=== PATIENT | female | born 1955 | race Caucasian/White ===

== ENCOUNTER 2021-11-02 07:17 | Day surgery (SDC) | payer BC, MEDICARE ==
[2021-10-31 09:47] VITALS: BMI 27.4
[~2021-11-02 07:17] MED LIST: LACTATED RINGERS 1,000 ML IV SCH; LIDOCAINE 1% (10MG/ML) FOR IV START INTRADERMA PRN
[2021-11-02 07:45] VITALS: TEMP 97.2
[2021-11-02] MEDS ORDERED: PROPOFOL 10 MG/ML 20 ML VIAL IV ONE (08:16)
[2021-11-02] MEDS ORDERED: GLUCAGON 1 MG/ML VIAL ONE (08:16)
--- NOTE | 2021-11-02 08:20 | P.GSHP ---
History of Present Illness H&P Date: 11/02/21 Chief Complaint: Screening colonoscopy This is a 65-year-old female who presents today for screening colonoscopy. Patient denies a significant GI complaints. Past Medical History Past Medical History: Osteoarthritis (OA), Thyroid Disorder Additional Past Medical History / Comment(s): Hx. of shingles History of Any Multi-Drug Resistant Organisms: None Reported Past Surgical History: Section Additional Past Surgical History / Comment(s): L wrist surgery, colonoscopy Past Anesthesia/Blood Transfusion Reactions: No Reported Reaction Smoking Status: Never smoker - Past Family History Mother Family Medical History: No Reported History Father Family Medical History: Deep Vein Thrombosis (DVT) Medications and Allergies Home Medications Medication Instructions Recorded Confirmed Type Acetaminophen [Tylenol] 325 mg PO DAILY 10/31/21 11/02/21 History Calcium Carbonate [Calcium] 600 mg PO DAILY 10/31/21 11/02/21 History Cholecalciferol (Vitamin D3) 125 mcg PO DAILY 10/31/21 11/02/21 History [Vitamin D3 (125 MCG = 5,000 IU)] Ibuprofen [Motrin] 400 mg PO Q8HR PRN 10/31/21 11/02/21 History Levothyroxine Sodium 100 mcg PO DAILY 10/31/21 11/02/21 History Multivitamins, Thera [Multivitamin 1 tab PO DAILY 10/31/21 11/02/21 History (formulary)] valACYclovir [Valtrex] 500 mg PO DAILY PRN 10/31/21 11/02/21 History Allergies Allergy/AdvReac Type Severity Reaction Status Date / Time tetracycline Allergy Rash/Hives Verified 11/02/21 07:35 [From Achromycin] Surgical - Exam Vital Signs Temp Pulse Resp BP Pulse Ox 97.2 F L 71 12 130/77 98 11/02/21 07:37 11/02/21 07:37 11/02/21 07:37 11/02/21 07:37 11/02/21 07:37 - General well developed, well nourished, no distress - Eyes PERRL - ENT normal pinna - Neck no masses - Respiratory normal expansion - Cardiovascular Rhythm: regular - Abdomen Abdomen: soft, non tender Assessment and Plan Assessment: We'll perform screening colonoscopy.
--- NOTE | 2021-11-02 08:41 | P.OP ---
Date of Procedure: 11/02/21 Preoperative Diagnosis: Screening colonoscopy Postoperative Diagnosis: Diverticulosis Sigmoid colon polyp Procedure(s) Performed: Colonoscopy Anesthesia: MAC Surgeon: Hector Coburn Pathology: other (Sigmoid colon polyp) Condition: stable Disposition: PACU Description of Procedure: The patient's placed on the endoscopy table in the lateral position. She received IV sedation. Digital rectal exam was performed. This revealed no abnormalities. The flexible colonoscope was then placed patient anus passed throughout the colon. The scope could not be passed beyond left colon secondary to tortuosity the sigmoid colon. Several times made to maneuver the scope however this wasn't possible. The scope was withdrawn. In the sigmoid colon there was a polyp seen. This removed with the snare. Scope was then withdrawn and the diverticular changes and sigmoid colon were seen. The scope was withdra wn the rectum and this appeared normal. The scope withdrawn for patient. Patient was scheduled for a barium enema to evaluate the remaining colon.
[2021-11-02 08:42] VITALS: RESP 16
[2021-11-02 09:15] VITALS: BP 129/78; PULSE 68
== END 2021-11-02 09:41 | disposition home or self-care (01) ==
LOC: ORWHC2ENDO 07:17
PROVIDERS: ATTEND Surgery
DX: Z12.11 Encounter for screening for malignant neoplasm of colon (principal); K63.5 Polyp of colon; K57.30 Diverticulosis of large intestine without perforation or abscess without bleeding; Q43.8 Other specified congenital malformations of intestine; M19.90 Unspecified osteoarthritis, unspecified site; E07.9 Disorder of thyroid, unspecified; Z86.19 Personal history of other infectious and parasitic diseases; Z82.49 Family history of ischemic heart disease and other diseases of the circulatory system; Z79.890 Hormone replacement therapy; Z79.899 Other long term (current) drug therapy; Z88.1 Allergy status to other antibiotic agents
CPT/HCPCS: 88305; 45338; J1610; J2704; 45380; 45385

== ENCOUNTER → 2021-11-14 | Outpatient (CLI) | payer MEDICARE ==
--- NOTE | 2021-11-14 13:03 | FL ---
EXAMINATION TYPE: FL barium enema DATE OF EXAM: 11/14/2021 COMPARISON: None available HISTORY: Incomplete colonoscopy TECHNIQUE: A double contrast barium enema study is performed. A total of 2 minutes and 4 seconds of fluoroscopic time was utilized during procedure and 28 images obtained. FINDINGS: Ship Unloader view of the abdomen shows overall non-obstructive bowel gas pattern. Redundant elongated colon. No evidence of any mass or large polyp, obstructing or constricting lesion throughout the colon. Scattered colonic diverticulosis most evident involving the sigmoid colon. Relatively reduced caliber of the sigmoid colon and descending colon, probably related to chronic div erticulosis. Appendix was filled and appeared normal. IMPRESSION: Colonic diverticulosis. No obvious colonic mass, large polyp or stricture. Please note that small landen yp cannot be excluded by this barium enema.
== END | disposition home or self-care (01) ==
LOC: RADFLMAIN 09:17
PROVIDERS: ATTEND Surgery
DX: K57.30 Diverticulosis of large intestine without perforation or abscess without bleeding (principal)
CPT/HCPCS: 74270

== ENCOUNTER → 2023-10-02 | Outpatient (CLI) | payer MEDICARE ==
--- NOTE | 2023-10-02 14:42 | MM ---
Reason for Exam: Additional evaluation requested from abnormal screening. Last screening mammogram was performed 1 month(s) ago. Patient History: Menarche at age 14. First Full-Term at age 33. Late child-bearing (after 30). Postmenopausal. Patient has history of breast feeding. 2010, Mammogram-Guided FNA Biopsy on the Left side. Paternal aunt had breast cancer at or over age 50. Risk Values: Anna 5 year model risk: 2.5%. NCI Lifetime model risk: 8.5%. Tissue Density: Right: There are scattered fibroglandular densities. Findings: Analyzed By CAD. The asymmetric density posterior superior right breast becomes less defined on additional views. The density has an appearance similar to adjacent fibroglandular tissue. Short interval follow-up recommended. Overall Assessment: Probably benign, BI-RAD 3 Management: Diagnostic Mammogram of the right breast in 6 months. Results were given to the patient verbally at the time of exam. Patient should continue monthly self-breast exams. A clinical breast exam by your physician is recommended on an annual basis. This exam should not preclude additional follow-up of suspicious palpable abnormalities. Note on Anna scores and lifetime risk: 1. A Anna score greater than 3% is considered moderate risk. If this is the case, consider specialist referral to assess eligibility for a risk reducing agent. 2. If overall lifetime risk for the development of breast cancer is 20% or higher, the patient may qualify for future screening with alternating mammogram and breast MRI. Electronically signed and approved by: Kristel Avendaño M.D. Radiologist
== END | disposition home or self-care (01) ==
LOC: RADMAMWWP 13:36
PROVIDERS: ATTEND Family Medicine
DX: R92.321 Mammographic fibroglandular density, right breast (principal); Z78.0 Asymptomatic menopausal state; Z80.3 Family history of malignant neoplasm of breast
CPT/HCPCS: 77065; G0279; 77061

== ENCOUNTER 2023-11-21 09:41 | Day surgery (SDC) | payer MEDICARE ==
[2023-11-20 09:18] VITALS: BMI 27.4
[2023-11-21] MEDS: LACTATED RINGERS 1,000 ML IV SCH (10:42)
[2023-11-21] MEDS ORDERED: PROPOFOL 10 MG/ML 20 ML VIAL IV ONE (10:50)
--- NOTE | 2023-11-21 10:55 | P.GSHP ---
History of Present Illness H&P Date: 11/21/23 Chief Complaint: History of colon polyps This a 67-year-old female. History of colon polyps. Patient presents today for colonoscopy. Patient is known history of diverticulosis also. Past Medical History Past Medical History: Osteoarthritis (OA), Thyroid Disorder Additional Past Medical History / Comment(s): Hx. of shingles History of Any Multi-Drug Resistant Organisms: None Reported Past Surgical History: Section, Orthopedic Surgery Additional Past Surgical History / Comment(s): L wrist surgery, colonoscopyX2, GANGLION CYSTECTOMY LT WRIST Past Anesthesia/Blood Transfusion Reactions: No Reported Reaction Past Psychological History: No Psychological Hx Reported Smoking Status: Never smoker Past Alcohol Use History: Occasional Past Drug Use History: None Reported - Past Family History Mother Family Medical History: No Reported History Father Family Medical History: Deep Vein Thrombosis (DVT) Medications and Allergies Home Medications Medication Instructions Recorded Confirmed Type Acetaminophen [Tylenol] 325 mg PO DAILY 10/31/21 11/20/23 History Calcium Carbonate [Calcium] 600 mg PO DAILY 10/31/21 11/20/23 History Cholecalciferol (Vitamin D3) 125 mcg PO DAILY 10/31/21 11/20/23 History [Vitamin D3 (125 MCG = 5,000 IU)] Ibuprofen [Motrin] 400 mg PO Q8HR PRN 10/31/21 11/20/23 History Multivitamins, Thera [Multivitamin 1 tab PO DAILY 10/31/21 11/20/23 History (formulary)] valACYclovir HCL [Valtrex] 500 mg PO DAILY PRN 10/31/21 11/20/23 History Levothyroxine Sodium [Synthroid] 137 mcg PO DAILY 11/20/23 11/20/23 History Allergies Allergy/AdvReac Type Severity Reaction Status Date / Time tetracycline Allergy Rash/Hives Verified 11/20/23 09:10 [From Achromycin] Surgical - Exam - General well developed, well nourished, no distress - Eyes PERRL - ENT normal pinna - Neck no masses - Respiratory normal expansion - Cardiovascular Rhythm: regular - Abdomen Abdomen: soft, non tender Assessment and Plan Assessment: History: Polyps. We'll perform colonoscopy.
--- NOTE | 2023-11-21 11:10 | P.OP ---
Date of Procedure: 11/21/23 Preoperative Diagnosis: History of colon polyps Diverticulosis Postoperative Diagnosis: Diverticulosis Procedure(s) Performed: Colonoscopy Anesthesia: MAC Surgeon: Hector Coburn Pathology: none sent Condition: stable Disposition: PACU Description of Procedure: The patient's placed on the endoscopy table in the lateral position. She received IV sedation. The digital rectal exam was performed. This revealed no abnormalities. The possible colonoscope was then placed patient anus and passed throughout the entire colon. The ileocecal valve was visually is. The cecum, ascending and transverse colon appeared normal. The descending and sigmoid colon had mild diverticular changes. Scope summer back the rectum and this appeared normal. Scope withdrawn for patient. There were no polyps seen.
[2023-11-21 11:21] VITALS: RESP 16
[2023-11-21 11:54] VITALS: BP 140/68; PULSE 82
== END 2023-11-21 11:48 | disposition home or self-care (01) ==
LOC: ORWHC2ENDO 09:41
PROVIDERS: ATTEND Surgery
DX: Z12.11 Encounter for screening for malignant neoplasm of colon (principal); K57.30 Diverticulosis of large intestine without perforation or abscess without bleeding; E07.9 Disorder of thyroid, unspecified; M19.90 Unspecified osteoarthritis, unspecified site; Z86.010 Personal history of colon polyps; Z98.891 History of uterine scar from previous surgery; F10.90 Alcohol use, unspecified, uncomplicated; Z79.890 Hormone replacement therapy; Z83.2 Family history of diseases of the blood and blood-forming organs and certain disorders involving the immune mechanism
CPT/HCPCS: G0105; J2704

== ENCOUNTER → 2024-04-02 | Outpatient (CLI) | payer MEDICARE ==
--- NOTE | 2024-05-28 13:52 | MM ---
Reason for Exam: Follow-up at short interval from prior study. Last screening mammogram was performed 7 month(s) ago. Patient History: Menarche at age 14. First Full-Term at age 33. Late child-bearing (after 30). Postmenopausal. Patient has history of breast feeding. 2010, Mammogram-Guided FNA Biopsy on the Left side. Paternal aunt had breast cancer, age 65. Risk Values: Anna 5 year model risk: 2.5%. NCI Lifetime model risk: 8.2%. Prior Study Comparison: 08/24/2022 Bilateral Screening Mammogram, [facility]. 08/27/2023 Bilateral Screening Mammogram, [facility]. 10/02/2023 Right MG 3D diag mammo w/cad RT, [facility]. Tissue Density: Right: The breasts are heterogeneously dense, which may obscure small masses. Findings: Analyzed By CAD. The pattern is unchanged. Focal asymmetry is on the right mediolateral oblique view, stable. No significant interval change is evident No suspicious groups of microcalcifications, spiculated or lobular masses, architectural distortion or other secondary signs of malignancy are mammographically apparent. Overall Assessment: Benign, BI-RAD 2 Management: Screening Mammogram of both breasts in 6 months. A negative mammogram report should not preclude additional follow up of suspicious palpable abnormalities. Patient should continue monthly self breast exam. A clinical breast exam by your physician is recommended on an annual basis and results should be correlated with mammographic findings. Note on Anna scores and lifetime risk: 1. A Anna score greater than 3% is considered moderate risk. If this is the case, consider specialist referral to assess eligibility for a risk reducing agent. 2. If overall lifetime risk for the development of breast cancer is 20% or higher, the patient may qualify for future screening with alternating mammogram and breast MRI. Electronically signed and approved by: Artis Easley D.O. Radiologis
== END | disposition home or self-care (01) ==
LOC: RADMAMWWP 12:57
PROVIDERS: ATTEND Family Medicine
DX: R92.8 Other abnormal and inconclusive findings on diagnostic imaging of breast (principal); Z78.0 Asymptomatic menopausal state; Z80.3 Family history of malignant neoplasm of breast; R92.331 Mammographic heterogeneous density, right breast
CPT/HCPCS: 77065; G0279; 77061

== ENCOUNTER → 2024-10-05 | Outpatient (CLI) | payer MEDICARE ==
--- NOTE | 2024-10-05 13:52 | MM ---
Reason for Exam: Screening (asymptomatic). Last mammogram was performed 1 year(s) and 1 month(s) ago. Patient History: Menarche at age 14. First Full-Term at age 33. Late child-bearing (after 30). Postmenopausal. Patient has history of breast feeding. 2010, Mammogram-Guided FNA Biopsy on the Left side. Paternal aunt had breast cancer, age 65. Risk Values: Anna 5 year model risk: 2.5%. NCI Lifetime model risk: 8.2%. Prior Study Comparison: 08/27/2023 Bilateral Screening Mammogram, [facility]. 10/02/2023 Right MG 3D diag mammo w/cad RT, [facility]. 04/02/2024 Right MG 3D diag mammo w/cad RT, [facility]. Tissue Density: The breasts are heterogeneously dense, which may obscure small masses. Findings: Analyzed By CAD. Asymmetric density posterior superior right MLO view remains unchanged. There is no suspicious group of microcalcifications or new suspicious mass in either breast. Overall Assessment: Benign, BI-RAD 2 Management: Screening Mammogram of both breasts in 1 year. Patient should continue monthly self-breast exams. A clinical breast exam by your physician is recommended on an annual basis. This exam should not preclude additional follow-up of suspicious palpable abnormalities. Note on Anna scores and lifetime risk: 1. A Anna score greater than 3% is considered moderate risk. If this is the case, consider specialist referral to assess eligibility for a risk reducing agent. 2. If overall lifetime risk for the development of breast cancer is 20% or higher, the patient may qualify for future screening with alternating mammogram and breast MRI. [facility], , 10/05/2024 1:50 PM. Electronically signed and approved by: Kristel Avendaño M.D. Radiologist
== END | disposition home or self-care (01) ==
LOC: RADMAMWWP 10:42
PROVIDERS: ATTEND Family Medicine
DX: Z12.31 Encounter for screening mammogram for malignant neoplasm of breast (principal); R92.333 Mammographic heterogeneous density, bilateral breasts; Z78.0 Asymptomatic menopausal state; Z80.3 Family history of malignant neoplasm of breast
CPT/HCPCS: 77063; 77067